=== PATIENT | female | born 1960 | race Caucasian/White ===

== ENCOUNTER 2019-03-22 10:28 | Emergency (ER) | payer BC ==
[~2019-03-22] VITALS: Ht 162.6 cm; Wt 82.7 kg
[2019-03-22] MEDS ORDERED: HYDR12.55 PO (10:42)
[2019-03-22] MEDS ORDERED: LEXA1TAB PO (10:42)
[2019-03-22] MEDS ORDERED: DULE100A INH (10:42)
[2019-03-22] MEDS ORDERED: FISH306C PO (10:42)
[2019-03-22] MEDS ORDERED: SING10TA32 PO (10:42)
[2019-03-22] MEDS ORDERED: PEPC1TAB5 PO (10:42)
[2019-03-22] MEDS ORDERED: WELLTAB38 PO (10:42)
[2019-03-22] MEDS ORDERED: ZYRTTAB8 PO (10:42)
[2019-03-22] MEDS ORDERED: SYNT88TA2 PO (10:42)
[2019-03-22] MEDS ORDERED: PROMETHAZINE INJ 25 MG/ML VIAL (J2550) IM STA (11:23)
[2019-03-22] MEDS ORDERED: MORPHINE 10 MG/ML 1ML VIAL (J2270) IM ONE (11:30)
[2019-03-22] MEDS ORDERED: MORPHINE 4 MG/ML 1ML VIAL/SYRINGE (J2270) IM STA (11:40)
[2019-03-22] MEDS ORDERED: PERCOCET 5MG/325MG TAB PO ONE (13:00)
[2019-03-22 13:10] VITALS: BP 136/88
--- NOTE | 2019-03-22 14:04 | REP ---
Clinical: Status post reduction and splinting Technique: AP and lateral views of the right ankle. Findings: Improved reduction and alignment to the lateral malleolus fracture and ankle joint. Impression: Improved alignment and reduction. Electronically Signed by Malachi Murguia MD 03/22/2019 12:55 P
--- NOTE | 2019-03-25 13:28 | REP ---
Clinical: Trauma. Technique: AP, lateral, bilateral oblique views of the right ankle. Findings: Fracture displacement of the distal fibula / lateral malleolus with disruption of the ankle mortise. Small fracture fragments adjacent to the medial malleolus cannot be excluded as well. Impression: Displaced fracture of the lateral malleolus with disruption of the ankle joint. Electronically Signed by Malachi Murguia MD 03/22/2019 11:09 A
== END 2019-03-22 13:20 | disposition home or self-care (01) ==
LOC: M ED 10:28 → EDBD 10:28 → M ED 13:20
DX: S82.61XA Displaced fracture of lateral malleolus of right fibula, initial encounter for closed fracture (principal); S93.04XA Dislocation of right ankle joint, initial encounter; X50.1XXA Overexertion from prolonged static or awkward postures, initial encounter; Y92.099 Unspecified place in other non-institutional residence as the place of occurrence of the external cause; Y93.9 Activity, unspecified; Y99.9 Unspecified external cause status; Z79.899 Other long term (current) drug therapy; Z88.1 Allergy status to other antibiotic agents; Z88.6 Allergy status to analgesic agent
CPT/HCPCS: 27840; 73600; 73610; 96374; 96375; 99284; J2270